=== PATIENT | male | born 1950 | race Caucasian/White ===

== ENCOUNTER → 2023-12-18 | Outpatient (CLI) | payer BC, MEDICARE ==
[2023-12-20 15:14] LABS: CALPROTECTIN,FECAL 100 ug/g (<=49)
== END | disposition home or self-care (01) ==
LOC: LAB SHORT 08:58
PROVIDERS: Physician Assistant Medical
DX: R10.13 Epigastric pain (principal)
CPT/HCPCS: 83993

== ENCOUNTER 2023-12-24 11:05 | Day surgery (SDC) | payer BC, MEDICARE ==
[~2023-12-24] VITALS: Ht 177.8 cm; Wt 96.1 kg
[~2023-12-24 11:05] MED LIST: Lactated Ringer's 1,000 ML IV ONE; propofoL 50 ML IV ONE
[2023-12-24] MEDS ORDERED: Lactated Ringer's 1,000 ML IV ONE (12:38)
[2023-12-24 14:53] VITALS: BP 135/101
== END 2023-12-24 14:56 | disposition home or self-care (01) ==
LOC: ORSCSDS 11:05
PROVIDERS: Internal Medicine Gastroenterology
PROC: 0DB68ZX Excision of Stomach, Via Natural or Artificial Opening Endoscopic, Diagnostic (ICD-10-PCS; principal; 2023-12-24 12:45)
PROC: 0DB98ZX Excision of Duodenum, Via Natural or Artificial Opening Endoscopic, Diagnostic (ICD-10-PCS; principal; 2023-12-24 12:45)
PROC: 0DB58ZX Excision of Esophagus, Via Natural or Artificial Opening Endoscopic, Diagnostic (ICD-10-PCS; principal; 2023-12-24 12:45)
PROC: 0DBP8ZX Excision of Rectum, Via Natural or Artificial Opening Endoscopic, Diagnostic (ICD-10-PCS; principal; 2023-12-24 12:45)
DX: R10.13 Epigastric pain (principal); R13.10 Dysphagia, unspecified; K62.1 Rectal polyp; I25.10 Atherosclerotic heart disease of native coronary artery without angina pectoris; I25.2 Old myocardial infarction; I10 Essential (primary) hypertension; E78.5 Hyperlipidemia, unspecified; Z79.899 Other long term (current) drug therapy
CPT/HCPCS: 88305; 88342; J2704; J7120